=== PATIENT | male | born 1965 | race Caucasian/White ===

== ENCOUNTER 2018-10-27 10:15 | Day surgery (SDC) | payer OTHER ==
[~2018-10-27] VITALS: Ht 170.2 cm; Wt 91.8 kg
[2018-10-27] VITALS (10 sets, daily range): BP systolic 117–145; BP diastolic 62–83; PULSE 62–76; TEMP 98
[2018-10-27 10:55] LABS: HEMATOCRIT 44.6 % (42.0-52.0); HEMOGLOBIN 15.6 g/dl (13.5-18.0); MEAN CELL VOLUME 87 fl (80.0-100.0); MEAN CORPUSCULAR HEMOGLOBIN 30 pg (27.0-31.0); MEAN CORPUSCULAR HGB CONC 35 g/dl (33.0-37.0); PLATELET COUNT 250 K/mm3 (130-400); RED BLOOD COUNT 5.14 M/mm3 (4.20-5.60); REDCELL DISTRIBUTION WIDTH-CV 12.3 % (11.5-14.5)
[2018-10-27 11:01] LABS: PROTHROMBIN TIME 11.7 SECONDS (9.7-12.8)
[2018-10-27] MEDS ORDERED: LIPITOR 10MG10 MG PO (11:01)
[2018-10-27] MEDS ORDERED: GLUCOPHAGE1000 MG PO (11:01)
[2018-10-27] MEDS ORDERED: ASPIRIN 81M81 MG/TA2 PO (11:03)
[2018-10-27] MEDS ORDERED: ZESTRIL 20MG TA20 MG PO (11:03)
[2018-10-27 11:04] LABS: CALCIUM 9.2 mg/dL (8.4-10.2); CREATININE, serum 0.71 (0.66-1.25); POTASSIUM 4.4 mmol/L (3.4-5.0)
[2018-10-27] MEDS ORDERED: MULTI VITAMINS1 TAB PO (11:05)
--- NOTE | 2018-10-27 14:28 | NUR ---
ALL MEDICATIONS GIVEN WITH VORB WITH MD. SEE MERGE FOR ALL MEDICATION ADMIN TIMES. SEE MERGE FOR ALL RASS ASSESSMENTS. POSITIVE BARBEAU'S TEST IN THE RIGHT WRIST, PULSE +2.
--- NOTE | 2018-10-27 15:00 | NUR ---
BAck from [employer]. Alert and oriented. Right Tband CD&I with 12 cc air. Good pulses noted and cap refill < 3 secs noted. VSS. Family bedsdie
[2018-10-27] MEDS ORDERED: LIPITOR 40MG TA40 MG PO (15:07)
--- NOTE | 2018-10-27 17:32 | NUR ---
TR band deflated with all 12 cc out and band discontinue with dressing applied. IV discontinued intact at left AC. Discharge instructions given.
--- NOTE | 2018-10-27 17:35 | NUR ---
Transferred to private car by navneet
== END 2018-10-27 17:55 | disposition home or self-care (01) ==
LOC: COL.CAR 10:15
PROVIDERS: Internal Medicine Cardiovascular Disease
DX: R07.89 Other chest pain (principal); I25.10 Atherosclerotic heart disease of native coronary artery without angina pectoris; I10 Essential (primary) hypertension; Z87.891 Personal history of nicotine dependence; E11.9 Type 2 diabetes mellitus without complications; Z79.84 Long term (current) use of oral hypoglycemic drugs; E78.2 Mixed hyperlipidemia; Z82.49 Family history of ischemic heart disease and other diseases of the circulatory system; G47.33 Obstructive sleep apnea (adult) (pediatric); Z79.899 Other long term (current) drug therapy; Z79.82 Long term (current) use of aspirin
CPT/HCPCS: J1644; J2250; J3010; Q9967

== ENCOUNTER 2023-09-25 19:24 | Emergency (ER) | payer BC ==
[~2023-09-25] VITALS: Ht 170.2 cm; Wt 84.1 kg
[~2023-09-25 19:24] MED LIST: ASPIRIN 81M81 MG/TA2 PO; GLUCOPHAGE1000 MG PO; LIPITOR 10MG10 MG PO; LIPITOR 40MG TA40 MG PO; MULTI VITAMINS1 TAB PO; ZESTRIL 20MG TA20 MG PO
[2023-09-25 19:28] VITALS: BP 159/94; TEMP 98.1
[2023-09-25] MEDS ORDERED: Ciprofloxacin 0.3% Ophth Soln 5 ML BOTTLE OP ONE (20:00)
[2023-09-25 20:15] VITALS: PULSE 74
== END 2023-09-25 20:15 | disposition home or self-care (01) ==
LOC: COL.ER 19:24
DX: T15.01XA Foreign body in cornea, right eye, initial encounter (principal)